=== PATIENT | female | born 1940 | race Caucasian/White ===

== ENCOUNTER 2023-01-06 16:16 | Emergency (ER) | payer MEDICARE, OTHER ==
[~2023-01-06] VITALS: Ht 165.1 cm; Wt 49.9 kg
[2023-01-06] MEDS ORDERED: BACI/NEOM/POLY B OINT PKT 1 UDPKT PACKET TP ONE (16:30)
[2023-01-06] MEDS ORDERED: TDAP [DIPH/PERTUSSIS/TET] 0.5 ML VIAL IM ONE ×2 (16:30→16:59)
[2023-01-06] MEDS ORDERED: BACI/NEOM/POLY B OINT PKT 1 UDPKT PACKET ONE (16:59)
[2023-01-06 17:13] VITALS: BP 141/81; TEMP 98.2; O2SAT 100
[2023-01-06] MEDS ORDERED: NAPR-1009 PO (17:54)
== END 2023-01-06 18:10 | disposition home or self-care (01) ==
LOC: ER 16:16
DX: S63.8X1A Sprain of other part of right wrist and hand, initial encounter (principal); Z79.899 Other long term (current) drug therapy; W20.8XXA Other cause of strike by thrown, projected or falling object, initial encounter; Y93.89 Activity, other specified; Y92.89 Other specified places as the place of occurrence of the external cause; Y99.8 Other external cause status
CPT/HCPCS: 73130-TC; 90715